=== PATIENT | male | born 1950 | race Caucasian/White ===

== ENCOUNTER 2018-06-16 11:25 | Outpatient (CLI) | payer OTHER | END 2018-06-16 11:26 | disposition home or self-care (01) | LOC: C.USIC 11:25 | DX: N18.3 Chronic kidney disease, stage 3 (moderate) (principal) ==

== ENCOUNTER 2018-06-25 07:36 | Outpatient (CLI) | payer OTHER | END 2018-06-25 07:37 | disposition home or self-care (01) | LOC: C.LAB 07:36 | DX: N18.3 Chronic kidney disease, stage 3 (moderate) (principal) ==

== ENCOUNTER 2018-06-26 07:48 | Outpatient (CLI) | payer OTHER | END 2018-06-26 07:49 | disposition home or self-care (01) | LOC: C.LAB 07:48 | DX: N18.3 Chronic kidney disease, stage 3 (moderate) (principal) ==

== ENCOUNTER 2018-08-25 08:48 | Outpatient (CLI) | payer OTHER | END 2018-08-25 08:49 | disposition home or self-care (01) | LOC: C.LAB 08:48 | DX: N18.3 Chronic kidney disease, stage 3 (moderate) (principal) ==